=== PATIENT | male | born 1935 | race Caucasian/White ===

== ENCOUNTER 2020-06-24 10:54 | Emergency (ER) | payer MEDICARE, OTHER ==
[~2020-06-24 10:54] MED LIST: ADVAIR DISKUS; ALBUTEROL; AMIODARONE HCL200 MG PO; ASPIRIN325 MG PO; BACTRIM DS TAB1 EACH PO; CLEOCIN300 MG PO; COREG 6.25MG6.25 MG PO; DULERA 200 MCG8.8 GM INH; FEOSOL325 MG PO; FLOMAX0.4 MG PO; FOLIC ACID1 MG PO; GARLIC1 EAC1 PO; KEFLEX250 MG PO; LEVAQUIN750 MG PO; LOVAZA1 GM PO; MELATONIN3 MG PO; NORVASC10 MG PO; NORVASC5 MG PO; PACERONE 200MG200 MG PO; PAROXETINE 20MG20 MG PO; PREDNISONE TAPER; PRILOSEC20 MG PO; PROSCAR5 MG PO; RHEUMATREX2.5 MG PO; ULTRA-LIGHT RO1 EACH XX; VITAMIN D-32000 UNI1 PO; XARELTO10 MG PO
[2020-06-24 11:53] LABS: BASOPHIL 0.4 % (0-2); EOSINOPHIL 0 % (0-7); HCT 42.5 % (42.0-52.0); HGB 14.2 g/dl (13.2-18.0); LYMPHOCYTE 4.8 % (15-48); MCH 30.6 pg (25.0-31.0); MCHC 33.4 g/dL (32.0-36.0); MCV 91.6 fL (78.0-100.0); MONOCYTE 7.8 % (0-12); NEUTROPHIL 86.8 % (41-80); NRBC 0; RBC 4.64 M/uL (4.70-6.00); RDW 13.6 % (11.5-14.0)
[2020-06-24 11:56] LABS: INR 1.25 (0.9-1.2); PROTHROMBIN TIME 14.9 SECONDS (11.4-13.6); PTT 31.3 SECONDS (22.2-34.7)
[2020-06-24 11:59] LABS: PLT 118 K/uL (150-400)
[2020-06-24 12:03] LABS: ALBUMIN 3.3 g/dL (3.4-5.0); BILIRUBIN - TOTAL 0.8 mg/dL (0.2-1.0); BUN/CREAT RATIO (CALC) 16.5 RATIO; CREATININE 1.15 mg/dL (0.67-1.17); GLOBULIN (CALCULATION) 2.8 g/dL; POTASSIUM 3.8 mmol/L (3.5-5.1); TOTAL PROTEIN 6.1 g/dL (6.4-8.2)
[2020-06-24 12:24] LABS: BILIRUBIN NEGATIVE (NEGATIVE); BLOOD 1+ Ery/uL (NEGATIVE); CLARITY HAZY (CLEAR); COLOR YELLOW (YELLOW); GLUCOSE (U) NORMAL (NORMAL); LEUKOCYTES 3+ Leu/uL (NEGATIVE); NITRITE NEGATIVE (NEGATIVE); PROTEIN 1+ mg/dL (NEGATIVE); SPECIFIC GRAVITY 1.015 (1.001-1.030)
[2020-06-24 12:32] LABS: BACTERIA 4+; URINARY WBC TNTC
[2020-06-24 14:47] LABS: CORONAVIRUS 2019 SARS-COV-2 NEGATIVE (NEGATIVE); INFLUENZA A NAA NEGATIVE (NEGATIVE)
[2020-06-24] MEDS ORDERED: CEFDINIR300 MG PO (15:58)
== END 2020-06-24 17:30 | disposition home or self-care (01) ==
LOC: FER 10:54
PROVIDERS: Internal Medicine
DX: J18.9 Pneumonia, unspecified organism (principal); N39.0 Urinary tract infection, site not specified; R26.2 Difficulty in walking, not elsewhere classified; I12.9 Hypertensive chronic kidney disease with stage 1 through stage 4 chronic kidney disease, or unspecified chronic kidney disease; N18.9 Chronic kidney disease, unspecified; F17.210 Nicotine dependence, cigarettes, uncomplicated; R29.700 NIHSS score 0; Z86.73 Personal history of transient ischemic attack (TIA), and cerebral infarction without residual deficits; Z90.5 Acquired absence of kidney; Z88.0 Allergy status to penicillin; Z88.2 Allergy status to sulfonamides; Z88.5 Allergy status to narcotic agent; Z88.6 Allergy status to analgesic agent; Z79.82 Long term (current) use of aspirin; Z79.899 Other long term (current) drug therapy; Z20.828 Contact with and (suspected) exposure to other viral communicable diseases
CPT/HCPCS: 36415; 70450; 71045; 80053; 81001; 84484; 85025; 85610; 85730; 87076; 87088; J0696; U0002

== ENCOUNTER 2021-03-22 15:32 | Emergency (ER) | payer MEDICARE, OTHER ==
[~2021-03-22 15:32] MED LIST changes: +CEFDINIR300 MG PO
[2021-03-22 16:29] LABS: BASOPHIL 0.8 % (0-2); EOSINOPHIL 0.8 % (0-7); HCT 38.9 % (42.0-52.0); HGB 12.9 g/dl (13.2-18.0); LYMPHOCYTE 12.8 % (15-48); MCHC 33.2 g/dL (32.0-36.0); MCV 93.5 fL (78.0-100.0); MONOCYTE 8.3 % (0-12); MPV 8.6 fL (6.0-9.5); NRBC 0; PLT 142 K/uL (150-400); RBC 4.16 M/uL (4.70-6.00); RDW 14.4 % (11.5-14.0)
[2021-03-22 16:40] LABS: INR 1.18 (0.9-1.2); PROTHROMBIN TIME 14.4 SECONDS (11.8-13.4); PTT 25.3 SECONDS (24.4-34.7)
[2021-03-22 16:46] LABS: ALBUMIN 3.3 g/dL (3.4-5.0); BILIRUBIN - TOTAL 0.5 mg/dL (0.2-1.0); BUN/CREAT RATIO (CALC) 14.3 RATIO; CREATININE 1.4 mg/dL (0.67-1.17); GLOBULIN (CALCULATION) 2.7 g/dL; POTASSIUM 5.1 mmol/L (3.5-5.1)
== END 2021-03-22 17:57 | disposition home or self-care (01) ==
LOC: FER 15:32
PROVIDERS: Internal Medicine
DX: S06.6X9A Traumatic subarachnoid hemorrhage with loss of consciousness of unspecified duration, initial encounter (principal); S01.01XA Laceration without foreign body of scalp, initial encounter; F17.210 Nicotine dependence, cigarettes, uncomplicated; Z86.73 Personal history of transient ischemic attack (TIA), and cerebral infarction without residual deficits; W19.XXXA Unspecified fall, initial encounter; Y92.009 Unspecified place in unspecified non-institutional (private) residence as the place of occurrence of the external cause
CPT/HCPCS: 36415; 70450; 80053; 85025; 85610; 85730; J3490

== ENCOUNTER 2021-05-16 12:04 | Emergency (ER) | payer MEDICARE, OTHER ==
[2021-05-16 13:25] LABS: BASOPHIL 0.6 % (0-2); EOSINOPHIL 0.9 % (0-7); HCT 41.7 % (42.0-52.0); HGB 13.9 g/dl (13.2-18.0); LYMPHOCYTE 10.6 % (15-48); MCH 31.2 pg (25.0-31.0); MCHC 33.3 g/dL (32.0-36.0); MCV 93.5 fL (78.0-100.0); MONOCYTE 1.8 % (0-12); MPV 9.4 fL (6.0-9.5); NEUTROPHIL 85.7 % (41-80); NRBC 0; PLT 150 K/uL (150-400); RBC 4.46 M/uL (4.70-6.00); RDW 13.3 % (11.5-14.0); WBC 6.7 K/uL (4.0-10.5)
[2021-05-16 13:32] LABS: ALBUMIN 3.6 g/dL (3.4-5.0); BILIRUBIN - TOTAL 0.9 mg/dL (0.2-1.0); BUN/CREAT RATIO (CALC) 19.1 RATIO; CREATININE 1.1 mg/dL (0.67-1.17); GLOBULIN (CALCULATION) 2.9 g/dL; MAGNESIUM 2.2 mg/dL (1.8-2.4); POTASSIUM 4.3 mmol/L (3.5-5.1); TOTAL PROTEIN 6.5 g/dL (6.4-8.2)
[2021-05-16 14:14] LABS: BILIRUBIN NEGATIVE (NEGATIVE); BLOOD 3+ Ery/uL (NEGATIVE); CLARITY CLOUDY (CLEAR); GLUCOSE (U) NORMAL (NORMAL); LEUKOCYTES TRACE Leu/uL (NEGATIVE); NITRITE NEGATIVE (NEGATIVE); PROTEIN 2+ mg/dL (NEGATIVE)
[2021-05-16 14:19] LABS: COLOR RED (YELLOW)
[2021-05-16 14:32] LABS: BACTERIA 1+; URINARY RBC TNTC; URINARY WBC 20-50
== END 2021-05-16 14:20 | disposition other institution (70) ==
LOC: FER 12:04
PROVIDERS: Emergency Medicine
DX: I62.00 Nontraumatic subdural hemorrhage, unspecified (principal); F17.200 Nicotine dependence, unspecified, uncomplicated; Z88.0 Allergy status to penicillin
CPT/HCPCS: 36415; 70450; 71250; 80053; 81001; 82550; 83735; 84484; 85025; 87040; 87088; 93005; J3490